=== PATIENT | female | born 1990 | race Caucasian/White ===

== ENCOUNTER 2017-11-02 01:31 | Inpatient (IN) | payer OTHER ==
[~2017-11-02] VITALS: Ht 163.8 cm; Wt 66.7 kg
[~2017-11-02 01:31] MED LIST: ACET-1966 PO; DIPH-618 PO; PREN-127 PO
[2017-11-02] MEDS ORDERED: OXYTOCIN 30 UNIT/D5LR 500 ML 500 ML IV PRN (02:04)
[2017-11-02] MEDS ORDERED: FAMOTIDINE(*) 20MG/50ML PREMIX 50 ML IVPB PRN (02:04)
[2017-11-02] MEDS ORDERED: DLR(*) 1000 ML BAG 1,000 ML IV PRN (02:04)
[2017-11-02] MEDS ORDERED: METOCLOPRAMIDE 10 MG/2 ML SDV IVP PRN (02:05)
[2017-11-02] MEDS ORDERED: fentaNYL CITR 100 MCG/2 ML AMP IVP PRN (02:05)
[2017-11-02] MEDS ORDERED: cefOXitin/DEX(*) 2GM/50ML PREM 50 ML IVPB PRN (02:05)
[2017-11-02] MEDS ORDERED: FLUSH 10 ML SYR IVP PRN (02:05)
[2017-11-02] MEDS ORDERED: LIDOCAINE 1% LOCAL 300 MG/30ML INJ PRN (02:05)
[2017-11-02] MEDS ORDERED: EPIDURAL KEYS XX PRN (02:08)
[2017-11-02] MEDS ORDERED: BUPIVACAINE 0.25% MPF INJ EPI PRN (02:10)
[2017-11-02] MEDS ORDERED: EPHEDRINE SULFATE/NS/PF 50 MG/10 ML SYRINGE IVP PRN (02:10)
[2017-11-02] MEDS ORDERED: FENTANYL/ROPIVACAINE 100 ML BAG EPI PRN (02:10)
[2017-11-02] MEDS ORDERED: LIDOCAINE/PF 2% 200MG/10ML AMP 200 MG/10 ML AMPUL EPI PRN (02:10)
[2017-11-02] MEDS ORDERED: BUPIVACAINE 0.5% INJ 30ML VIAL EPI PRN (02:10)
[2017-11-02] MEDS ORDERED: LIDO/EPI 2% MPF 1:200,000 20ML EPI PRN (02:10)
[2017-11-02] MEDS ORDERED: fentaNYL CITR 100 MCG/2 ML AMP IT PRN (02:10)
[2017-11-02] MEDS ORDERED: OXYTOCIN 30 UNIT/D5LR 500 ML 500 ML ONE (02:13)
[2017-11-02 02:20] LABS: PLATELET COUNT, AUTOMATED 201 K/uL (150-450)
[2017-11-02] MEDS: LR(*) 1000 ML BAG 1,000 ML IV PRN ×2 (02:22→02:36)
--- NOTE | 2017-11-02 03:18 | Anesthesia OB Pre-Anes Eval ---
History of Present Illness Anesthesia Start Date: Nov 02, 2017 Anesthesia Start Time: 02:20 Complications: None known EDC: Nov 08, 2017 : 2 Para: 1 Pain Ratin Heart Tones: WNL Result Diagram: 11/02/17 0210 Height (Inches): 63 Past Medical History Medical History: no pertinent history Surgical History: no surgical history Previous Anesthesia: epidural Attended Childbirth Classes?: No Hx Anesthesia Reactions: No Hx Family Anesthesia Reaction: No Home Meds Reported Medications Diphenhydramine Hcl (DIPHENHYDRAMINE HCL) 25 Mg Tablet, 25 MG PO Q6-8H, TAB 10/21/17 Acetaminophen (TYLENOL) 325 Mg Tablet, 325 MG PO, TAB 10/21/17 Vits W-Ca,Fe,Fa(<1MG) ( VITAMINS) 1 Each Tablet, 1 EACH PO DAILY, TAB 10/21/17 Allergies: Coded Allergies: No Known Drug Allergies (Unverified , 11/02/17) Anesthesia OB ROS Neurological: No migraines/headaches, No seizures, No neuropathy Eyes ROS: contacts out Pulmonary: No asthma, No smoker (pks/day/yrs) Airway Class: ll Cardiovascular ROS: No edema, No arrhythmia GI ROS: clear liquids Last Solids Date: Nov 01, 2017 Last Solids Time: 21:00 ROS: No Herpes, No STD(s), No Liver Disease, No Renal Disease Endocrine ROS: No diabetes, No gestational diabetes, No thyroid disorder Musculoskeletal ROS: No low back pain, No low back injury, No scoliosis ASA Classification: 2 Assessment and Plan Anesthesia Plan: CSE Assessment Past Medical, Surgical, Family and Obstetric Histories reviewed. Please see ACOG chart. Epidural anesthesia risks, complications and benefits explained to patient's satisfaction for labor and vaginal delivery and/or section. General anesthesia risks and benefits explained to patient's satisfaction. Questions invited, none asked. MORENO DE LA TORRE CRNA Nov 02, 2017 03:18
[2017-11-02 03:30] VITALS: BP 122/74; Ht 163.8 cm; Wt 66.7 kg
--- NOTE | 2017-11-02 03:33 | History & Physical ---
History of Present Illness Age of Patient: 27 : 2 Para or TPAL: 1 EDC per LMP: Nov 08, 2017 EDC per U/S: Nov 04, 2017 Estimated Gestational Age: 39.1 Chief Complaint Contractions History of Present Illness Pt is a 27 y/o @ 39-1/7 weeks gestation who presents to L&D with a chief complaint of painful contractions. Reports contractions started last night around 8 pm. Began to worsen around 12-1 am this morning. Reports no vaginal bleeding. No gush of fluid. Good movement. History Patient's Blood Type: A Positive Rubella Status: Immune Group B Strep Screen: Negative Obstetrical History: @ 40 weeks gestation in [place] Past Medical History: Non Contributory Allergies: Coded Allergies: No Known Drug Allergies (Unverified , 11/02/17) Social History: Denies X 3. to Bill ( [employer]) Med Rec Home Meds Reported Medications Diphenhydramine Hcl (DIPHENHYDRAMINE HCL) 25 Mg Tablet, 25 MG PO Q6-8H, TAB 10/21/17 Acetaminophen (TYLENOL) 325 Mg Tablet, 325 MG PO, TAB 10/21/17 Vits W-Ca,Fe,Fa(<1MG) ( VITAMINS) 1 Each Tablet, 1 EACH PO DAILY, TAB 10/21/17 Review of Systems All Systems Reviewed/Normal: Yes, Except as Noted Neurological: No Syncope, No Confusion, No Weakness, No Dizziness, No Slurred Speech, No Other Eyes: No Vision Change, No Loss of Vision, No Photophobia, No Other ENT: No Hearing Loss, No Sinus Congestion, No Sore Throat, No Ear Ache, No Tinnitus, No Other Cardiovascular: No Chest Pain, No Palpitations, No Orthostatic Hypotension, No Other Respiratory: No Shortness of Breath, No Cough, No Wheezing, No Other Gastrointestinal: No Nausea, No Vomiting, No Diarrhea, No Dysphagia, No Constipation, No Early Satiety, No Hematemesis, No Hematochezia, No Melena, No Abdominal Pain, No Other Genitourinary: No Dysuria, No Hematuria, No Urinary Incontinence, No Other Musculoskeletal: No Pain, No Sprain, No Strain, No Impaired Mobility, No Other Psychiatric: No Depression, No Anxiety, No Other Exam General Exam General Apperance: Alert/Awake/No Acute Distress Neuro: No Gross deficits Eyes: Normal Extraocular Movement & Vison, PERRLA ENT: Normal Cardiovascular: Regular Rate and Rhythm Respiratory: No Respiratory Distress, Clear to Auscultation Abdomen: Soft, Non-Tender, Non-Distended, Gravid - Non-Tender : Normal Musculoskeletal: No Weakness/Pain Extremities: No Cyanosis,Clubbing or Edema Integumentary: Skin Intact without Lesions or Rash Psychological: Alert & Oriented X3, Appropriate Mood & Affect Cervical Dialation: 8 Cervical Effacement (%): 100 Cervical Consistency: Soft Cervical Position: Anterior Station: -1 Presentation: Vertex Uterine Contractions(Q min): 1 Uterine Contraction Strength: Moderate UC Resting Tone: Soft Fetus Feeling Movement?: Yes Estimated Weight(grams): 2900 Heart Tones: 120 Heart Tone Variabilty: Moderate FHT Accelerations: 15X15 FHT Decelerations: None FHT Category: I Medical Decision Making Data Points Result Diagram: 11/02/17 0210 Pre-Admit Course Medical Record Review: Yes VTE Prophylasis: Adult Deep Vein Thrombosis/Pulmonary: No Assessment and Plan 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 shortly after. RYLAN GONZALEZ DO Nov 02, 2017 03:33
--- NOTE | 2017-11-02 03:42 | OB Delivery Note ---
Delivery Note Vaginal Delivery Type: Spont. Vaginal Delivery Delivery Date: Nov 02, 2017 Delivery Time: 03:11 Estimated Gestational Age(wks): 39.1 Length of Labor Stage I (hrs): 6.5 Length of Labor Stage II (hrs): 0.5 Labor Stage III (minutes): 6 Delivery Anesthesia: Epidural Sex: Male Weight (gms): 2892 (6#6oz) Apgars: 1 Minute (9 ), 5 Minute (9) Delivery Complications: Nuchal Cord Microbiology Lab Analyst in Attendence: RYLAN Forde DO Nov 02, 2017 03:42
--- NOTE | 2017-11-02 03:42 | Procedure Note ---
Anesthetic Placement Note Anesthesia Plan: CSE Permit for Anesthesia Signed: Yes Anesthesia Technique: Patient Sitting Anesthesia Prep: Chlorhexidine Interspace: L 3-4 Local Anesthetic: 1% Lidocaine, 25 Gauge Needle Amount Local - cc's: 2 Anesthesia Needle: 17g Touhy/Schliff Anesthesia Attempts: 1 Loss of Resistance: Air Depth of ADAMA (cm): 4 Epidural Needle Placement: No CSF, No Blood, No Parasthesia Intrathecal Needle: 27 Gauge Pencan Cerebral Spinal Fluid: Yes, Clear Catheter Insertion (cm): 6 Catheter Type: Sun - Spring Wound Epidural Dressing: Tegaderm, Tape, Adhesive [place] Anesthesia Tray: Lot Number ([id number]), Expiration Date (2018-05-26), Reference Number ([id number]) Anesthesia Medications: Intrathecal Dose: mcg Fentanyl (15), mg Marcaine MPF (1.5), Time (0234) Epidural Test Dose: 1.5 Lido/Epi (1:200,000), Dose - mL (3), Time (0240), Negative Complications: None Comment: While placing epidural, pt. began to notice increased "pressure" with contractions. After test dose, additional 50 mcgs Fentenyl given per epidural. No itching noted. Pt. became comfortable within 10 minutes and stated she does not "feel contractions at all". MORENO DE LA TORRE WARP SPOOLER Nov 02, 2017 03:42
[2017-11-02] MEDS ORDERED: INFLUENZA VIRUS VAC 0.5 ML SYR IM ONLY ONE (03:45)
[2017-11-02] MEDS ORDERED: BENZOCAINE 20% 60 ML BTL TP PRN (03:45)
[2017-11-02] MEDS ORDERED: MEASLES,MUMP,RUBELLA VAC 0.5ML SC ONE (03:45)
[2017-11-02] MEDS ORDERED: GLYCERIN/WITCH HAZEL LEAF 1 PK TOP PRN (03:45)
[2017-11-02] MEDS ORDERED: APAP/HYDROCODONE 325/5 TAB PO PRN (03:45)
[2017-11-02] MEDS ORDERED: LANOLIN OINT 7 GM TUBE TP PRN (03:45)
[2017-11-02] MEDS ORDERED: DIPHTH/TETANUS/ACEL. PERTUSSIS IM ONE (03:45)
[2017-11-02] MEDS ORDERED: MAGNESIUM HYDROXIDE* 30ML UDCP PO PRN (03:45)
[2017-11-02] MEDS ORDERED: ACETAMINOPHEN 325 MG TAB PO PRN (03:45)
[2017-11-02] MEDS ORDERED: HYDROCORTISONE 2.5% CR 30GM TB PR PRN (03:45)
--- NOTE | 2017-11-02 03:50 | Anesthesia Progress Note ---
Progress/Maintenance Anesthesia Note Date: Nov 02, 2017 Anesthesia Note Time: 03:15 Pain Intensity: 0 Pump: On Sensory Level: T-12 Motor Level: Bending Knees-Bilateral Dilatation: 10 Position: Semi-Fowlers Assessment and Plan Assessment No additional medications were given. Pt. was able to laugh while also able to push well. Excellent tolerance of delivery. Epidural catheter remains in place and no epidural gtt was ever given. Patient instructed the first ambulation is to be with help of nursing staff. Instructed to preform deep knee bends at bedside before walking. Anesthesia Stop Day: Nov 02, 2017 Anesthesia Stop Time: 03:15 MORENO DE LA TORRE CRNA Nov 02, 2017 03:50
[2017-11-02 07:15] VITALS: BP 103/64
[2017-11-02] MEDS: IBUPROFEN 800 MG TAB PO SCH ×2 (08:56→17:27)
[2017-11-02] MEDS: DOCUSATE CALCIUM 240 MG CAP PO SCH ×2 (08:56→20:45)
--- NOTE | 2017-11-02 09:58 | DELIVERY NOTE ---
DELIVERY DATE: November 02, 2017 SURGEON: Facundo Russell DO ANESTHESIA: Epidural. PREOPERATIVE DIAGNOSIS 1. 27-year-old 2, para 1 at 39 and 1/7 weeks gestation by LMP. 2. Labor. POSTOPERATIVE DIAGNOSIS 1. 27-year-old 2, para 1 at 39 and 1/7 weeks gestation by LMP. 2. Labor. 3. Delivered. PROCEDURE Spontaneous vaginal delivery with intact perineum. FINDINGS Live-born male infant at 0311 of November 02, 2017 with Apgars of 9 and 9, weighing 2892 grams, 6 pounds, 6 ounces, three-vessel cord, intact placenta over an intact perineum. ESTIMATED BLOOD LOSS 300 mL. PATHOLOGY None. COMPLICATIONS None known. CONDITION Stable x 2, mother and to remain in LDRP. COUNTS Correct x 2 for all needles, laps, sponges and instruments. LABOR SUMMARY Patient is a 27-year-old 2, para 1 who presented to labor and delivery with a chief complaint of painful contractions, reports contractions since 8 p.m. last night. Upon initial cervical examination, she was noted to be 8-9 cm , sheridan every 1-2 minutes. She did request epidural. Once epidural was given, the patient was noted to be complete and +2 station. With patient +2 station, amniotomy was performed with meconium-stained amniotic fluid. The patient was given coaching instructions on how to push, and the delivery room was set up for vaginal delivery, and the delivery team was called. DELIVERY SUMMARY Patient was placed in the dorsal lithotomy position. She was prepped and draped in the usual sterile manner. Upon maternal pushing, the infant's head delivered in a controlled manner followed by the anterior shoulders with gentle downward motion, the posterior shoulder with gentle upward motion. The remainder of the infant's body delivered spontaneously. Mouth and nose were bulb suctioned. The infant was placed on maternal abdomen, where he was vigorously cleaned and dried. Vigorous male was noted with good color and good tone. After approximately 2 minutes, it was noted there were no more cord pulsations, so the cord was clamped x 2 and cut by the 's father over the cord clamp. The was allowed to remain on maternal abdomen. Cord blood gas was obtained. Placenta delivered spontaneously with gentle cord traction. Oxytocin was infused to help with uterine tone. Upon inspection of the perineum, vagina, cervix and labia, it was noted that there was no laceration. At this point, the patient was cleaned, labor bed was reassembled, and the mother and infant were allowed to continue to duran. GABRIELA
[2017-11-02 11:22] VITALS: BP 97/50
[2017-11-02 15:30] VITALS: BP 106/63
--- NOTE | 2017-11-02 17:16 | Anesthesia Post Eval Note ---
Anesthesia Post Eval Note Vital Signs Date Time Temp Pulse Resp B/P (MAP) Pulse Ox O2 Delivery O2 Flow Rate FiO2 11/02/17 15:30 98.3 76 18 106/63 (77) 11/02/17 07:15 95 11/02/17 03:30 Room Air Pt able to participate in Eval: Yes Cardiovascular Status: Satisfactory Respiratory Status: Satisfactory Pain Managment: Satisfactory PO Nausea/Vomiting: Satisfactory Mental Status: Satisfactory, Alert, Oriented X3 Post-Op Hydration Status: Satisfactory, Tolerating PO Well, Voiding w/o Difficulty Anesthesia Type: CSE Anesthesia Tolerance: Tolerated procedure well without apparent anesthetic complications. LP site clear, no redness or edema. Denies headache or any residual paresthesia. Vital Signs Stable, Patient comfortable and condition stable. MORENO DE LA TORRE WAREHOUSER Nov 02, 2017 17:16
[2017-11-02 20:45] VITALS: BP 100/64
[2017-11-03] VITALS: BP 101/62
[2017-11-03] MEDS: IBUPROFEN 800 MG TAB PO SCH ×2 (00:26→09:06)
[2017-11-03 08:10] VITALS: BP 100/67
--- NOTE | 2017-11-03 08:38 | OB/GYN Progress Note ---
OB Subjective Progress Notes Subjective Pain controlled, Tolerating diet and activity. Baby . Normal lochia. GI: POS Flatus, NEG Nausea, NEG Vomiting : Voiding Well Pain: Mild OB Objective Physical Exam Vital Signs Date Time Temp Pulse Resp B/P (MAP) Pulse Ox O2 Delivery O2 Flow Rate FiO2 11/03/17 00:00 97.8 50 14 101/62 (75) Room Air 11/02/17 07:15 95 General Appearance: Alert/Awake/No Acute Distress Neurological: No Gross deficits Eyes: Normal Extraocular Movement & Vison, PERRLA Cardiovascular: Regular Rate and Rhythm Respiratory: No Respiratory Distress, Clear to Auscultation Abdomen: Fundus Firm Extremities: No Cyanosis,Clubbing or Edema, No Edema Integumentary: Skin Intact without Lesions or Rash Psychological: Alert & Oriented X3, Appropriate Mood & Affect Result Diagram: 11/03/17 0554 Assessment and Plan Post Day: 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 Baby . Normal lochia. NICOLA RECINOS MD Nov 03, 2017 08:38
[2017-11-03] MEDS ORDERED: IBUP800T37 PO (08:39)
[2017-11-03] MEDS ORDERED: HYDR2TAB4 PO (08:39)
--- NOTE | 2017-11-03 08:40 | OB/GYN Discharge Summary ---
Discharge Summary Reason for Hosp/Final Diag: (1) 39 weeks gestation of (2) Spontaneous onset of labor Status: Resolved (3) care following vaginal delivery Hospital Course & Plan: Vaginal delivery on day 1, Pain controlled, Tolerating diet and activity. Baby . Normal lochia. Lates Vital Signs Vital Signs Date Time Temp Pulse Resp B/P (MAP) Pulse Ox O2 Delivery O2 Flow Rate FiO2 11/03/17 00:00 97.8 50 14 101/62 (75) Room Air 11/02/17 07:15 95 Weight (Pounds): 147 Result Diagram: 11/03/17 0554 Condition: Improved Discharge: Home, Self Halfway Meds Active Scripts Ibuprofen (IBUPROFEN) 800 Mg Tablet, 1 TAB PO Q8H, #30 TAB 0 Refills Take with food every 8 hours. Prov:NICOLA RECINOS MD 11/03/17 Hydromorphone Hcl (HYDROMORPHONE HCL) 2 Mg Tablet, 2-4 MG PO Q4H for PAIN, #20 TAB 0 Refills Prov:NICOLA RECINOS MD 11/03/17 Reported Medications Diphenhydramine Hcl (DIPHENHYDRAMINE HCL) 25 Mg Tablet, 25 MG PO Q6-8H, TAB 10/21/17 Acetaminophen (TYLENOL) 325 Mg Tablet, 325 MG PO, TAB 10/21/17 Vits W-Ca,Fe,Fa(<1MG) ( VITAMINS) 1 Each Tablet, 1 EACH PO DAILY, TAB 10/21/17 [facility] [phone] Follow up in: 6 wks PP or PO Copies to: NICOLA RECINOS MD, JOHN MD Nov 03, 2017 08:40
[2017-11-03] MEDS: DOCUSATE CALCIUM 240 MG CAP PO SCH (09:06)
== END 2017-11-03 10:15 | disposition home or self-care (01) | DRG 775 ==
LOC: OB 01:31
PROVIDERS: ADMIT Student in an Organized Health Care Education/Training Program; ATTEND Student in an Organized Health Care Education/Training Program
PROC: 10E0XZZ Delivery of Products of Conception, External Approach (ICD-10-PCS; principal; 2017-11-02)
PROC: 10907ZC Drainage of Amniotic Fluid, Therapeutic from Products of Conception, Via Natural or Artificial Opening (ICD-10-PCS; 2017-11-02)
DX: O77.0 Labor and delivery complicated by meconium in amniotic fluid (principal); O69.81X0 Labor and delivery complicated by cord around neck, without compression, not applicable or unspecified; Z37.0 Single live birth; Z3A.39 39 weeks gestation of pregnancy
CPT/HCPCS: 36415; 85025; 85027; 86850; 86900; 86901; J2590; J3010; J7120; S0020